=== PATIENT | female | born 1965 | race Caucasian/White ===

== ENCOUNTER 2016-11-10 11:22 | Emergency (ER) | payer OTHER ==
[2016-11-10] MEDS ORDERED: ASPIRIN TABLET 325 MG TAB ONE (11:46)
[2016-11-10] MEDS ORDERED: NITROGLYCERIN 0.4 MG 25 EA TAB SL ONE (11:46)
[2016-11-10 11:52] VITALS: TEMP 98.4; O2SAT 99
[2016-11-10] MEDS ORDERED: NITROGLYCERIN/D5W IV 250 ML IVS SCH (12:00)
[2016-11-10] MEDS ORDERED: CLOPIDOGREL 75 MG TAB PO ONE (12:03)
[2016-11-10] MEDS ORDERED: HEPARIN SODIUM (PORCINE) 5,000 U/ML VIAL IV ONE (12:04)
[2016-11-10] MEDS ORDERED: ASPIRIN (ENTERIC COATED) 325 MG TAB PO ONE (12:05)
[2016-11-10] MEDS ORDERED: TENECTEPLASE 50 MG VIAL IV ONE (12:10)
--- NOTE | 2016-11-10 12:12 | RAD ---
EXAM DESCRIPTION: Chest,1 View CLINICAL HISTORY: 51 yearsFemale, near syncope, abn ekg COMPARISON: None. IMPRESSION: Heart size and pulmonary vascularity are within normal limits. There is no airspace consolidation, pleural effusion, or pneumothorax. No acute osseous abnormality. Electronically signed by: Junior Otto MD 11/10/2016 12:11 PM [facility] [employer]
[2016-11-10] MEDS ORDERED: HEPARIN PREMIX 500 ML IV SCH (12:15)
--- NOTE | 2016-11-10 12:20 | ED.PDOC ---
History of Present Illness - General Chief Complaint: General Stated Complaint: POSS FLU Time Seen by Provider: 11/10/16 11:41 Source: patient Exam Limitations: no limitations - History of Present Illness Initial Comments: pt presents due to n/v starting at 5 am. she has developed back pain in the upper mid back and pain sevee to the left arm rated 8/10. mild shortness of breath . had significant diaphoresis. no syncope. no previous symptoms. is a diabetic and smokes and has a positive family history. pain has progressed since early this am. Timing/Duration: 4-6 hours Severity: severe Improving Factors: nothing Worsening Factors: nothing Associated Symptoms: chest pain - mild, diaphoresis, malaise, shortness of breath Allergies/Adverse Reactions: Allergies NO KNOWN ALLERGY Allergy (Verified 11/10/16 11:35) Review of Systems - Review of Systems Constitutional: States: malaise EENTM: States: no symptoms reported Respiratory: States: see HPI Cardiology: States: chest pain Gastrointestinal/Abdominal: States: nausea, vomiting Genitourinary: States: no symptoms reported Musculoskeletal: States: see HPI, back pain Skin: States: no symptoms reported Neurological: States: no symptoms reported Endocrine: States: no symptoms reported All other Systems: No Change from Baseline Past Medical History (General) - Patient Medical History Hx Congestive Heart Failure: No Hx Hypertension: Yes Hx Diabetes: Yes Surgical History: appendectomy, tonsillectomy - Vaccination History Hx Tetanus, Diphtheria Vaccination: Yes Hx Influenza Vaccination: Yes Hx Pneumococcal Vaccination: Yes - Social History Hx Tobacco Use: Yes Hx Alcohol Use: Yes Hx Substance Use: No - Female History Patient is a Female of Child Bearing Age (10 -59 yrs old): No Family Medical History - Family History Mother Living Status: Still Living Physical Exam - Physical Exam General Appearance: Alert, Anxious, Obvious distress Eye Exam: bilateral normal Ears, Nose, Throat: normal ENT inspection, normal pharynx Neck: non-tender, full range of motion, supple, normal inspection Respiratory: chest non-tender, lungs clear, normal breath sounds, no respiratory distress, no accessory muscle use Cardiovascular/Chest: normal peripheral pulses, regular rate, rhythm, no edema Peripheral Pulses: radial,right: 2+, radial,left: 2+, dorsalis pedis,right: 2+, dorsalis pedis,left: 2+ Gastrointestinal/Abdominal: non tender, soft Rectal Exam: deferred Back Exam: normal inspection, no CVA tenderness, no vertebral tenderness Extremity: normal range of motion, non-tender, normal inspection, no pedal edema , normal capillary refill Neurologic: no motor/sensory deficits, alert, oriented x 3 Skin Exam: diaphoresis, pallor Comments: Vital Signs - 24 hr 11/10/16 11:38 Temperature 98.4 F Pulse Rate [ 64 MONITOR] Respiratory 20 Rate Blood Pressure 127/78 [Right Arm] O2 Sat by Pulse 99 Oximetry Progress - Progress Progress: 11/10/16 12:22 pt presenting with likely posterior mi. dr kothari contacted and ekg's reviewed and agrees with diagnosis based on ekgs. initiated lytic protocol. tnkase started. iv heparin bolus given. 300 plavix given. aspirin given. low dose iv nitro used to prevent hypotension. transfering to [facility] for higher level of care. vitals technically normal at this time. 50mcg fentanyl given. critical care time on not other christopher billable procedures: 45 minutes 11/10/16 12:27 - Results/Orders Results/Orders: chest xray within normal limitis. ekg shows nsr with a rbbb, st depression in v1 and v2. st mild elevation in inferior leads. posterior ekg shows st elevation in v3-v5. 11/10/16 11:42 Telemetry .CONTINUOUS Oxygen Delivery Assessment: QSHIFT HCG,SERUM Stat 11/10/16 11:43 UA [URINALYSIS] Stat 11/10/16 11:45 EKG STAT 11/10/16 12:00 B-TYPE NATRIURETIC PEPTIDE/BNP Stat CARDIAC ENZYME GROUP Stat COMPLETE METABOLIC PROFILE Stat Nitroglycerin/D5w IV 250 ml IVS PRN 11/10/16 12:15 Heparin Premix [Heparin/D5w 25,000U/500ML] 500 ml IV PRN 11/11/16 09:00 Oxygen Daily Laboratory Results - last 24 hr 11/10/16 12:00 WBC 12.1 H RBC 4.52 Hgb 13.5 Hct 40.9 MCV 90.4 MCH 29.9 MCHC 33.1 RDW 13.8 Plt Count 243 MPV 7.5 Absolute Neuts (auto) 10.30 H Absolute Lymphs (auto) 1.40 Absolute Monos (auto) 0.40 Absolute Eos (auto) 0.00 Absolute Basos (auto) 0.10 Neutrophils % 84.9 H Lymphocytes % 11.4 L Monocytes % 3.2 Eosinophils % 0.0 L Basophils % 0.5 PT 10.4 INR 0.920 PTT (SP) 30.8 D-Dimer, Quantitative < 230 Sodium 135 Potassium 4.0 Chloride 104 Carbon Dioxide 23 Anion Gap 12.0 BUN 15 Creatinine 0.57 L BUN/Creatinine Ratio 26.3 H Random Glucose 149 H Serum Osmolality 273.7 L Calcium 9.5 Total Bilirubin 0.6 AST 37 ALT 23 Alkaline Phosphatase 90 Creatine Kinase 528 H* Troponin I 1.11 H* B-Natriuretic Peptide 34.6 Serum Total Protein 7.4 Albumin 4.3 Globulin 3.1 Albumin/Globulin Ratio 1.4 - EKG/XRAY/CT CT Ordered: No Departure - Departure Clinical Impression: STEMI (ST elevation myocardial infarction) Qualifiers: Involved coronary artery: unspecified coronary artery Qualifier Code: (I21.3) ST elevation (STEMI) myocardial infarction of unspecified site Disposition: Transfer to Hospital Transfer to Outside Facility - Transfer Information Accepting Provider:: dr kothari Accepting Facility: [facility] Reason for Transfer: required specialist not available
[2016-11-10] MEDS ORDERED: fentaNYL CITRATE INJ 50 MCG/ML AMP ONE (12:26)
[2016-11-10] MEDS ORDERED: fentaNYL CITRATE INJ 50 MCG/ML AMP IV ONE (12:27)
[2016-11-10] MEDS ORDERED: ASPIRIN TABLET 325 MG TAB PO ONE (12:59)
[2016-11-10 14:13] VITALS: BP 135/85
--- NOTE | 2016-11-15 00:37 | RAD ---
EXAM DESCRIPTION: Chest,1 View CLINICAL HISTORY: 51 yearsFemale, near syncope, abn ekg COMPARISON: None. IMPRESSION: Heart size and pulmonary vascularity are within normal limits. There is no airspace consolidation, pleural effusion, or pneumothorax. No acute osseous abnormality. Electronically signed by: Junior Otto MD 11/10/2016 12:11 PM NEW GRAD RN
== END 2016-11-10 12:50 | disposition short-term general hospital (02) ==
LOC: ER 11:22
DX: I21.3 ST elevation (STEMI) myocardial infarction of unspecified site (principal); I10 Essential (primary) hypertension; Z87.891 Personal history of nicotine dependence
CPT/HCPCS: 36415; 71010; 80053; 82550; 82553; 83880; 84484; 84703; 85025; 85379; 85610; 85730; 93005; J1644; J3010; J3101

== ENCOUNTER 2017-03-03 19:09 | Emergency (ER) | payer OTHER ==
[2017-03-03] MEDS ORDERED: NITROGLYCERIN 0.4 MG 25 EA TAB SL ONE ×2 (19:26→19:31)
[2017-03-03] MEDS ORDERED: ASPIRIN (CHEWABLE) 81 MG TAB ONE (19:26)
[2017-03-03] MEDS ORDERED: ASPIRIN TABLET 325 MG TAB PO ONE (19:31)
[2017-03-03] MEDS ORDERED: SODIUM CHLORIDE 0.9% (FLUSH) 10 ML SYG IV PRN (19:31)
--- NOTE | 2017-03-03 19:47 | RAD ---
EXAM DESCRIPTION: Chest,1 View CLINICAL HISTORY: 51 years Female reports chest pain and had a previous IA in [place]. COMPARISON: November 10, 2016. FINDINGS: The cardiomediastinal silhouette appears unremarkable. No consolidating infiltrates or pleural effusions. No pneumothorax. IMPRESSION: No acute abnormality is identified. Electronically signed by: Joi Espana 03/03/2017 7:46 PM CDT
[2017-03-03] MEDS ORDERED: LACTATED RINGERS 1,000 ML IVS ONE (19:55)
--- NOTE | 2017-03-03 19:56 | ED.PDOC ---
History of Present Illness - General Chief Complaint: Chest Pain/MS Stated Complaint: chest pressure and back pain Time Seen by Provider: 03/03/17 19:53 Source: patient, RN notes reviewed, Vital Signs reviewed Exam Limitations: no limitations - History of Present Illness Initial Comments: Orly Silva 51 y/o female with history of mi 5 mos ago had cardiac stent placement stated that she had stabbing chest pain on her back radiating to left side of chest which persisted on her arrival to er.No nausea/vomiting no diaphoresis,no dizziness Timing/Duration: 1-3 hours Severity: moderate Location: back Prior Chest Pain/Cardiac Workup: cardiac cath, heart attack Improving Factors: nothing Worsening Factors: nothing Nitro Today/Relief: 0.4 mg x 2, provided by ED Aspirin Treatment Today: 325 mg x 1, provided by ED Associated Symptoms: chest pain Allergies/Adverse Reactions: Allergies NO KNOWN ALLERGY Allergy (Verified 03/03/17 19:41) Home Medications: Ambulatory Orders Nitroglycerin 0.4 mg SL Q5MIN PRN #1 sub 03/03/17 Review of Systems - Review of Systems Constitutional: States: no symptoms reported EENTM: States: no symptoms reported Respiratory: States: no symptoms reported Cardiology: States: see HPI Gastrointestinal/Abdominal: States: no symptoms reported Genitourinary: States: no symptoms reported Musculoskeletal: States: no symptoms reported Skin: States: no symptoms reported Neurological: States: no symptoms reported Endocrine: States: no symptoms reported Hematologic/Lymphatic: States: no symptoms reported Past Medical History (General) - Patient Medical History Hx Asthma: Yes Hx Cardiac Disorders: Yes - [place] in Oct, stent x1 Hx Congestive Heart Failure: No Hx Hypertension: Yes Hx Diabetes: Yes Surgical History: appendectomy, tonsillectomy, other - hysterectomy - Vaccination History Hx Tetanus, Diphtheria Vaccination: No Hx Influenza Vaccination: No Hx Pneumococcal Vaccination: No - Social History Hx Tobacco Use: Yes Hx Alcohol Use: No Hx Substance Use: No - Activities of Daily Living Patient Lives Alone: No - family Grooming Ability: Independent Eating (Feeding) Ability: Independent Toileting Ability: Independent - Female History Patient is a Female of Child Bearing Age (10 -59 yrs old): No Family Medical History - Family History Mother Family History: No Known Living Status: Still Living Physical Exam - Physical Exam General Appearance: Alert, No apparent distress Eyes, Ears, Nose, Throat Exam: PERRL/EOMI, TMs normal Neck: non-tender, full range of motion, supple Respiratory: chest non-tender, lungs clear, normal breath sounds Cardiovascular/Chest: normal peripheral pulses, regular rate, rhythm, no gallop , no murmur Peripheral Pulses: radial,right: 2+, radial,left: 2+ Gastrointestinal/Abdominal: normal bowel sounds, non tender, soft, no organomegaly Extremity: normal inspection, no calf tenderness Neurologic: alert, normal mood/affect, oriented x 3 Skin Exam: normal color, warm/dry Lymphatic: no adenopathy Progress - Progress Progress: 03/03/17 19:56 Vital Signs - 8 hr 03/03/17 19:15 Temperature 97.8 F Pulse Rate 66 Pulse Rate [ 66 left] Respiratory 18 Rate Blood Pressure 125/70 [left] O2 Sat by Pulse 95 Oximetry 03/03/17 22:15 Chest pain free discuss hospital observation but declined to come back if there is recurrence of symptoms. Has good family support stated nurse is an RN living nearby.Discuss normal ekg and troponin but need to have serial testing really wants to stay home. 03/03/17 22:18 - Results/Orders Results/Orders: Laboratory Tests 03/03/17 03/03/17 03/03/17 19:15 19:15 19:15 WBC 12.5 H RBC 4.25 Hgb 13.2 Hct 38.6 MCV 90.8 MCH 31.0 MCHC 34.1 RDW 14.0 Plt Count 269 MPV 7.4 Absolute Neuts (auto) 5.80 Absolute Lymphs (auto) 5.20 H Absolute Monos (auto) 1.00 H Absolute Eos (auto) 0.30 Absolute Basos (auto) 0.10 Neutrophils % 46.5 Lymphocytes % 42.1 Monocytes % 7.7 Eosinophils % 2.5 Basophils % 1.2 PT 10.0 INR 0.880 PTT (SP) 30.9 D-Dimer, Quantitative < 200 Sodium 141 Potassium 3.8 Chloride 108 Carbon Dioxide 23 Anion Gap 13.8 BUN 32 H Creatinine 1.40 H BUN/Creatinine Ratio 22.9 H Random Glucose 110 H Serum Osmolality 288.8 Calcium 9.4 Magnesium 2.1 Total Bilirubin 0.4 Direct Bilirubin < 0.1 Indirect Bilirubin 0.3 AST 25 ALT 23 Alkaline Phosphatase 76 Creatine Kinase 529 H* CK-MB (CK-2) 14.0 H* CK-MB (CK-2) % 2.65 Troponin I < 0.02 B-Natriuretic Peptide 27.8 Serum Total Protein 7.2 Albumin 4.3 TSH Urine Color Urine Appearance Urine pH Ur Specific [place] Urine Protein Urine Glucose (UA) Urine Ketones Urine Blood Urine Nitrite Urine Bilirubin Urine Urobilinogen Ur Leukocyte Esterase Urine RBC Urine WBC Ur Epithelial Cells Urine Bacteria Urine Opiates Screen Urine Barbiturates Ur Phencyclidine Scrn U Amphetamin/Meth Scrn U Benzodiazepines Scrn U Cocaine Metab Screen U Cannabinoids Screen 03/03/17 03/03/17 03/03/17 19:55 20:48 21:25 WBC RBC Hgb Hct MCV MCH MCHC RDW Plt Count MPV Absolute Neuts (auto) Absolute Lymphs (auto) Absolute Monos (auto) Absolute Eos (auto) Absolute Basos (auto) Neutrophils % Lymphocytes % Monocytes % Eosinophils % Basophils % PT INR PTT (SP) D-Dimer, Quantitative Sodium Potassium Chloride Carbon Dioxide Anion Gap BUN Creatinine BUN/Creatinine Ratio Random Glucose Serum Osmolality Calcium Magnesium Total Bilirubin Direct Bilirubin Indirect Bilirubin AST ALT Alkaline Phosphatase Creatine Kinase 463 H* CK-MB (CK-2) 13.0 H* CK-MB (CK-2) % 2.81 Troponin I < 0.02 B-Natriuretic Peptide Serum Total Protein Albumin TSH 1.98 Urine Color Urine Appearance Urine pH Ur Specific [place] Urine Protein Urine Glucose (UA) Urine Ketones Urine Blood Urine Nitrite Urine Bilirubin Urine Urobilinogen Ur Leukocyte Esterase Urine RBC Urine WBC Ur Epithelial Cells Urine Bacteria Urine Opiates Screen Negative Urine Barbiturates Negative Ur Phencyclidine Scrn Negative U Amphetamin/Meth Scrn Negative U Benzodiazepines Scrn Negative U Cocaine Metab Screen Negative U Cannabinoids Screen Negative 03/03/17 21:27 WBC RBC Hgb Hct MCV MCH MCHC RDW Plt Count MPV Absolute Neuts (auto) Absolute Lymphs (auto) Absolute Monos (auto) Absolute Eos (auto) Absolute Basos (auto) Neutrophils % Lymphocytes % Monocytes % Eosinophils % Basophils % PT INR PTT (SP) D-Dimer, Quantitative Sodium Potassium Chloride Carbon Dioxide Anion Gap BUN Creatinine BUN/Creatinine Ratio Random Glucose Serum Osmolality Calcium Magnesium Total Bilirubin Direct Bilirubin Indirect Bilirubin AST ALT Alkaline Phosphatase Creatine Kinase CK-MB (CK-2) CK-MB (CK-2) % Troponin I B-Natriuretic Peptide Serum Total Protein Albumin TSH Urine Color Yellow Urine Appearance Clear Urine pH 5.5 Ur Specific [place] 1.020 Urine Protein Negative Urine Glucose (UA) Negative Urine Ketones Negative Urine Blood Moderate H Urine Nitrite Negative Urine Bilirubin Negative Urine Urobilinogen 0.2 Ur Leukocyte Esterase Negative Urine RBC 3-5 H Urine WBC 0-1 Ur Epithelial Cells 1-3 Urine Bacteria Rare Urine Opiates Screen Urine Barbiturates Ur Phencyclidine Scrn U Amphetamin/Meth Scrn U Benzodiazepines Scrn U Cocaine Metab Screen U Cannabinoids Screen - EKG/XRAY/CT EKG: Sinus, no ST T wave changes Comments: heart rate -66 XRAY: chest - no acute abnormality/radiologist - Additional EKG/XRAY/Consults EKG #2: Sinus, no ST T wave changes Comments: Heart rate-55 Departure - Departure Clinical Impression: Chest pain Qualifiers: Chest pain type: unspecified Qualified Code(s): R07.9 - Chest pain, unspecified Time of Disposition: 22:20 Disposition: Discharge to Home or Self Care Condition: Good Departure Forms: ED Discharge - Pt. Copy, Patient Portal Self Enrollment Prescriptions: Nitroglycerin 0.4 mg SL Q5MIN PRN #1 sub PRN Reason: Chest Pain Home Medications: Ambulatory Orders Nitroglycerin 0.4 mg SL Q5MIN PRN #1 sub 03/03/17 Additional Instructions: RETURN TO EMERGENCY ROOM NEEDED;CONTINUE WITH ALL HOME MEDICATIONS;Follow up with machinery mover and primary md call for appointment
[2017-03-03 22:51] VITALS: BP 106/59; TEMP 96.6; O2SAT 96
== END 2017-03-03 22:45 | disposition home or self-care (01) ==
LOC: ER 19:09
DX: R07.9 Chest pain, unspecified (principal); I25.2 Old myocardial infarction; I10 Essential (primary) hypertension; E11.9 Type 2 diabetes mellitus without complications; Z98.61 Coronary angioplasty status
CPT/HCPCS: 36415; 71010; 80048; 80076; 80307; 81001; 82550; 82553; 83880; 84443; 84484; 85025; 85379; 85610; 85730; J7120

== ENCOUNTER 2018-08-21 18:39 | Emergency (ER) | payer OTHER ==
--- NOTE | 2018-08-21 18:55 | ED.PDOC ---
History of Present Illness - General Chief Complaint: General Stated Complaint: right flank pain/rib pain Time Seen by Provider: 08/21/18 18:43 Source: patient Exam Limitations: no limitations - History of Present Illness Initial Comments: Patient presents with right flank pain for 3 hours. Sudden onset, sharp in nature, constant, associated with N/V since the onset. No exacerbating nor alleviating factors. Denies previous episodes. Took a hydrocodone about 3 hours ago. Had an AMI 10/2015 and has stents. She takes ASA 81 mg qd but no other anticoagulants. She was sent her from the urgent care out of concern for cardiac issues. No other complaints. Timing/Duration: other - 3 hours Severity: moderate Improving Factors: nothing Worsening Factors: nothing Associated Symptoms: nausea/vomiting Allergies/Adverse Reactions: Allergies NO KNOWN ALLERGY Allergy (Verified 08/21/18 18:55) Home Medications: Ambulatory Orders Nitroglycerin 0.4 mg SL Q5MIN PRN #1 sub 03/03/17 Review of Systems - Review of Systems Constitutional: States: no symptoms reported EENTM: States: no symptoms reported Respiratory: States: no symptoms reported Cardiology: States: no symptoms reported Gastrointestinal/Abdominal: States: see HPI Genitourinary: States: see HPI Musculoskeletal: States: no symptoms reported Skin: States: no symptoms reported Neurological: States: no symptoms reported Endocrine: States: no symptoms reported Hematologic/Lymphatic: States: no symptoms reported Past Medical History (General) - Patient Medical History Hx Asthma: Yes Hx Cardiac Disorders: Yes - [place] in Oct, stent x1 Hx Congestive Heart Failure: No Hx Hypertension: Yes Hx Diabetes: Yes - Vaccination History Hx Tetanus, Diphtheria Vaccination: No Hx Influenza Vaccination: No Hx Pneumococcal Vaccination: No - Social History Hx Tobacco Use: Yes Hx Alcohol Use: No Hx Substance Use: No Family Medical History - Family History Mother Family History: No Known Living Status: Still Living Physical Exam - Physical Exam General Appearance: Obvious distress Eye Exam: bilateral normal Ears, Nose, Throat: normal ENT inspection Neck: non-tender, full range of motion, supple Respiratory: lungs clear, normal breath sounds Cardiovascular/Chest: normal peripheral pulses, no edema, bradycardia Gastrointestinal/Abdominal: normal bowel sounds, non tender, soft Back Exam: normal inspection, no CVA tenderness Extremity: normal range of motion, non-tender, normal inspection Neurologic: gravity prospecting observer helper II-XII nml as tested, no motor/sensory deficits, alert, normal mood/affect, oriented x 3 Skin Exam: normal color Lymphatic: no adenopathy Progress - Progress Progress: 08/21/18 21:35 CXR negative. Laboratory Tests 08/21/18 08/21/18 08/21/18 19:00 19:00 19:00 WBC 17.2 H RBC 3.93 L Hgb 12.3 Hct 36.7 MCV 93.4 MCH 31.2 H MCHC 33.4 RDW 13.7 Plt Count 258 MPV 7.2 L Absolute Neuts (auto) 12.80 H Absolute Lymphs (auto) 2.80 Absolute Monos (auto) 0.90 H Absolute Eos (auto) 0.40 Absolute Basos (auto) 0.20 H Neutrophils % 74.7 Lymphocytes % 16.3 L Monocytes % 5.4 Eosinophils % 2.2 Basophils % 1.4 Sodium 140 Potassium 3.6 Chloride 107 Carbon Dioxide 26 Anion Gap 10.6 L BUN 12 Creatinine 0.89 BUN/Creatinine Ratio 13.5 POC Glucose Random Glucose 112 H Serum Osmolality 279.9 Calcium 9.4 Total Bilirubin 0.2 AST 25 ALT 18 Alkaline Phosphatase 88 Creatine Kinase CK-MB (CK-2) CK-MB (CK-2) % Troponin I Serum Total Protein 7.5 Albumin 4.1 Globulin 3.4 Albumin/Globulin Ratio 1.2 Lipase 21 L Urine Color Urine Appearance Urine pH Ur Specific [place] Urine Protein Urine Glucose (UA) Urine Ketones Urine Blood Urine Nitrite Urine Bilirubin Urine Urobilinogen Ur Leukocyte Esterase Urine RBC Urine WBC Ur Epithelial Cells Urine Bacteria 08/21/18 08/21/18 08/21/18 19:00 19:00 20:00 WBC RBC Hgb Hct MCV MCH MCHC RDW Plt Count MPV Absolute Neuts (auto) Absolute Lymphs (auto) Absolute Monos (auto) Absolute Eos (auto) Absolute Basos (auto) Neutrophils % Lymphocytes % Monocytes % Eosinophils % Basophils % Sodium Potassium Chloride Carbon Dioxide Anion Gap BUN Creatinine BUN/Creatinine Ratio POC Glucose 120 H Random Glucose Serum Osmolality Calcium Total Bilirubin AST ALT Alkaline Phosphatase Creatine Kinase 366 H* CK-MB (CK-2) 8.1 H* CK-MB (CK-2) % 2.21 Troponin I < 0.02 Serum Total Protein Albumin Globulin Albumin/Globulin Ratio Lipase Urine Color Yellow Urine Appearance Clear Urine pH 5.5 Ur Specific [place] >= 1.030 Urine Protein Negative Urine Glucose (UA) Negative Urine Ketones Negative Urine Blood Large H Urine Nitrite Negative Urine Bilirubin Negative Urine Urobilinogen 0.2 Ur Leukocyte Esterase Negative Urine RBC 5-10 H Urine WBC 3-5 H Ur Epithelial Cells 5-10 Urine Bacteria 1+ CT ab/pelvis showed no ureteral stones. WBC was 17 but this could be due to the pain. The patient was afebrile and she reported that she easily runs fevers when she is sick. Morphine 4 mg IV and Zofran 4 mg IV alleviated her N/V and most of the side pain. She also shared that when her friend massaged the focus of the pain, that if felt better. She has narcotics and muscle relaxants at home already. Will send with Zofran. Care instructions given. E.R. warnings given. Questions were elicited and answered. The patient voiced understanding and agreement with the plan. Departure - Departure Clinical Impression: Side pain Disposition: Discharge to Home or Self Care Condition: Good Departure Forms: ED Discharge - Pt. Copy, Patient Portal Self Enrollment Diet: diabetic diet Activity: increase activity as tolerated Home Medications: Ambulatory Orders Nitroglycerin 0.4 mg SL Q5MIN PRN #1 sub 03/03/17 Additional Instructions: Return to the E.R. if nausea and vomiting persists for more than two days. Return to the E.R. for a temperature above 100.4. See your regular doctor this week to follow up on the rib pain.
[2018-08-21] MEDS: MORPHINE SULFATE INJ 10 MG/ML VIAL IV ONE (19:03)
--- NOTE | 2018-08-21 19:49 | RAD ---
EXAM DESCRIPTION: AP view of the chest CLINICAL HISTORY:52 years Female, right rib pain Comparison: None FINDINGS: No focal lung consolidation. No pleural effusion. No pneumothorax. Cardiac and mediastinal silhouette is unremarkable. No acute osseous abnormality. Soft tissues are unremarkable. IMPRESSION: No acute findings. No focal lung consolidation. Electronically signed by: Mat Huffman DO 08/21/2018 7:48 PM [employer]ABLE SYSTEMS INSTALLER
[2018-08-21] MEDS: ONDANSETRON INJ 4 MG/2 ML VIAL IV ONE (20:40)
--- NOTE | 2018-08-21 20:46 | RAD ---
EXAM DESCRIPTION: XR RIBS 2 VIEWS UNILATERAL CLINICAL HISTORY: Right rib pain COMPARISON: Chest radiograph dated August 21, 2018 and March 03, 2017 FINDINGS: Right rib series was acquired. No acute displaced fracture or aggressive bone lesion is demonstrated of the right ribs. Cardiac silhouette and pulmonary vascularity are within normal limits. Included lung velasquez show no consolidative infiltrates. Posterior fusion constructs of the lower lumbar spine are seen bilaterally. Likely a belly button ring projecting over the mid abdomen. Included abdomen shows no acute abnormalities. IMPRESSION: 1. No acute displaced fracture or aggressive bony lesion of the right ribs. 2. Other findings as above. Electronically signed by: William Romero MD 08/21/2018 8:45 PM [facility]
--- NOTE | 2018-08-21 21:27 | CT ---
PROCEDURE: Abdoment/Pelvis w/o Contrast HISTORY: possible stone on right Indication: Same as above Comparison: Same as above Technique: CT of the abdomen and pelvis was done without intravenous contrast. Images were obtained from the lung base to the level of the pubic symphysis in axial plane, followed by orthogonal sagittal and coronal reconstruction. Oral contrast was not given for the study. This exam was performed according to our departmental dose-optimization program, which includes automated exposure control, adjustment of the mA and/or KV according to the patient's size and/or use of iterative reconstruction technique. FINDINGS: Images through the lung bases do not show any focal infiltrates or pleural effusions. The liver, gallbladder, pancreas, spleen and the bilateral adrenal glands appear unremarkable, given the limitation of lack of intravenous contrast. The bilateral kidneys do not show any evidence of hydronephrosis or nephrolithiasis. The bilateral ureters and the bilateral periureteral soft tissues and fat planes are unremarkable. The urinary bladder is unremarkable, without any evidence of wall thickening, calculi or filling defects. The small bowel appears unremarkable, without any evidence of small bowel obstruction or bowel wall thickening. There is no CT evidence of pericecal inflammatory change or ileocecal mesenteric adenitis. The ileocecal junction appears unremarkable. There is prior appendectomy There is no CT evidence of acute colonic diverticulitis or colitis or large bowel obstruction. There is no pathological lymphadenopathy in the retroperitoneum or in the pelvic region. There is no evidence of free fluid or free air in the abdomen or the pelvic region. There is no clinically significant abdominal aortic aneurysm. There is no clinically significant inguinal or ventral hernia. The visualized lumbar spine shows prior surgery at L4/L5 level. The paravertebral soft tissues are unremarkable. The remainder of the pelvic structures are unremarkable. IMPRESSION: There are no acute findings in the abdomen or the pelvis. There is no CT evidence of urinary tract calculi or urinary tract obstruction Electronically signed by: Peter Anthony MD 08/21/2018 9:25 PM DANCE HISTORIAN Workstation: [id number] Reviewed
[2018-08-21 21:32] VITALS: O2SAT 100
[2018-08-21] MEDS: ONDANSETRON ODT (ER DISP) 8 MG TAB PO ONE (21:50)
[2018-08-21 21:56] VITALS: BP 113/68; TEMP 98.2
== END 2018-08-21 21:56 | disposition home or self-care (01) ==
LOC: ER 18:39
DX: R10.9 Unspecified abdominal pain (principal); R11.2 Nausea with vomiting, unspecified; J45.909 Unspecified asthma, uncomplicated; I25.2 Old myocardial infarction; I10 Essential (primary) hypertension; E11.9 Type 2 diabetes mellitus without complications; Z95.5 Presence of coronary angioplasty implant and graft; Z87.891 Personal history of nicotine dependence

== ENCOUNTER 2018-10-17 10:50 | Emergency (ER) | payer OTHER ==
[2018-10-17] MEDS ORDERED: MORPHINE SULFATE INJ 10 MG/ML VIAL IV ONE (11:39)
[2018-10-17] MEDS ORDERED: LACTATED RINGERS 1,000 ML IVS ONE (11:39)
[2018-10-17] MEDS ORDERED: PROCHLORPERAZINE INJ 10 MG/2 ML VIAL IV ONE (11:39)
--- NOTE | 2018-10-17 11:41 | ED.PDOC ---
History of Present Illness - General Chief Complaint: GI Problem Stated Complaint: N/V/D, muscle spasms to leg Time Seen by Provider: 10/17/18 11:33 Source: patient Exam Limitations: no limitations - History of Present Illness Initial Comments: Orly Silva 53 y/o female stated that she had on and off N/V/D the last 3 days not any better.Her grand child ill with same symptoms.No recent antibiotic use. Timing/Duration: other - 3 days Severity: moderate Improving Factors: nothing Worsening Factors: eating Associated Symptoms: nausea/vomiting Allergies/Adverse Reactions: Allergies NO KNOWN ALLERGY Allergy (Verified 10/17/18 11:16) Home Medications: Ambulatory Orders Nitroglycerin 0.4 mg SL Q5MIN PRN #1 sub 03/03/17 Promethazine Tab [Phenergan Tablet] 25 mg PO .Q4H PRN #20 tab 10/17/18 Review of Systems - Review of Systems Constitutional: States: no symptoms reported EENTM: States: no symptoms reported Respiratory: States: no symptoms reported Cardiology: States: no symptoms reported Gastrointestinal/Abdominal: States: see HPI, diarrhea, vomiting Genitourinary: States: no symptoms reported Musculoskeletal: States: no symptoms reported All other Systems: Reviewed and Negative, No Change from Baseline Past Medical History (General) - Patient Medical History Hx Stroke: No Hx Asthma: Yes Hx Cardiac Disorders: Yes - MD, cardiac stent Hx Congestive Heart Failure: No Hx Hypertension: Yes Hx Diabetes: Yes Surgical History: appendectomy, tonsillectomy, other - hysterectomy,cardiac stent - Vaccination History Hx Tetanus, Diphtheria Vaccination: No Hx Influenza Vaccination: Yes - 2017 Hx Pneumococcal Vaccination: Yes - Social History Hx Tobacco Use: Yes Hx Alcohol Use: No Hx Substance Use: No Family Medical History - Family History Mother Family History: No Known Living Status: Still Living Physical Exam - Physical Exam General Appearance: Alert, Comfortable, No apparent distress Eye Exam: bilateral normal Ears, Nose, Throat: hearing grossly normal, normal ENT inspection, normal pharynx Neck: supple, normal inspection Respiratory: lungs clear, normal breath sounds, no respiratory distress Cardiovascular/Chest: normal peripheral pulses, regular rate, rhythm, no murmur Peripheral Pulses: radial,right: 2+, radial,left: 2+ Gastrointestinal/Abdominal: non tender, soft, no organomegaly Back Exam: no CVA tenderness, no vertebral tenderness Extremity: no pedal edema, no calf tenderness Neurologic: alert, oriented x 3 Skin Exam: normal color, warm/dry Lymphatic: no adenopathy Progress - Progress Progress: 10/17/18 11:45 Vital Signs - 8 hr 10/17/18 11:09 Temperature 98.2 F Pulse Rate [ 73 Left Radial] Respiratory 14 Rate Blood Pressure 105/65 [Left Arm] O2 Sat by Pulse 94 L Oximetry - Results/Orders Results/Orders: 10/17/18 13:09 Sodium Chloride 0.9% 500Ml [NS 500ml] 500 ml IVS ONCE Laboratory Results - last 24 hr 10/17/18 10/17/18 11:46 11:53 WBC 6.6 RBC 4.40 Hgb 13.9 Hct 41.9 MCV 95.1 MCH 31.5 H MCHC 33.2 RDW 13.8 Plt Count 232 MPV 7.5 Absolute Neuts (auto) 4.90 Absolute Lymphs (auto) 1.00 Absolute Monos (auto) 0.60 Absolute Eos (auto) 0.00 Absolute Basos (auto) 0.00 Neutrophils % 74.1 Lymphocytes % 15.1 L Monocytes % 9.7 H Eosinophils % 0.7 L Basophils % 0.4 PT 9.9 INR 0.99 PTT (SP) 25.0 Sodium 136 Potassium 3.6 Chloride 104 Carbon Dioxide 23 Anion Gap 12.6 BUN 15 Creatinine 0.78 BUN/Creatinine Ratio 19.2 Random Glucose 111 H Serum Osmolality 273.5 L Calcium 9.0 Magnesium 2.0 Total Bilirubin 0.3 Direct Bilirubin < 0.1 Indirect Bilirubin 0.2 AST 32 ALT 25 Alkaline Phosphatase 74 Creatine Kinase 256 H* CK-MB (CK-2) 5.9 H* CK-MB (CK-2) % 2.30 Troponin I < 0.02 Serum Total Protein 7.8 Albumin 4.0 Lipase 26 Urine Color Yellow Urine Appearance Clear Urine pH 5.5 Ur Specific Bevier >= 1.030 Urine Protein 30 Urine Glucose (UA) Negative Urine Ketones Negative Urine Blood Large H Urine Nitrite Negative Urine Bilirubin Small H Urine Urobilinogen 0.2 Ur Leukocyte Esterase Negative Urine RBC 30-40 H Urine WBC 0 Ur Epithelial Cells 0-1 Urine Bacteria 0 Discuss test result with patient and ask if she had been evaluated for blood in urine mentioned that she had Urological evaluation and closely followed up by Urologist.Also stated mom also has blood in her urine cause unknown and had urological evaluation also. Departure - Departure Clinical Impression: Gastroenteritis Hematuria Qualifiers: Hematuria type: unspecified type Qualified Code(s): R31.9 - Hematuria, unspecified Time of Disposition: 13:31 Disposition: Discharge to Home or Self Care Condition: Fair Departure Forms: ED Discharge - Pt. Copy, Patient Portal Self Enrollment Instructions: Viral Gastroenteritis, Viral Gastroenteritis, Adult (DC), [place] Diet Prescriptions: Promethazine Tab [Phenergan Tablet] 25 mg PO .Q4H PRN #20 tab PRN Reason: Nausea Home Medications: Ambulatory Orders Nitroglycerin 0.4 mg SL Q5MIN PRN #1 sub 03/03/17 Promethazine Tab [Phenergan Tablet] 25 mg PO .Q4H PRN #20 tab 10/17/18 Additional Instructions: Return to emergency room as needed;continue with all home medications
[2018-10-17] MEDS ORDERED: SODIUM CHLORIDE 0.9% 500ML 500 ML IVS ONE (13:09)
[2018-10-17 14:01] VITALS: BP 102/64; TEMP 99.6; O2SAT 99
== END 2018-10-17 14:01 | disposition home or self-care (01) ==
LOC: ER 10:50
DX: K52.9 Noninfective gastroenteritis and colitis, unspecified (principal); R31.9 Hematuria, unspecified; J45.909 Unspecified asthma, uncomplicated; I25.2 Old myocardial infarction; I10 Essential (primary) hypertension; E11.9 Type 2 diabetes mellitus without complications; Z95.5 Presence of coronary angioplasty implant and graft; Z87.891 Personal history of nicotine dependence
CPT/HCPCS: 80048; 80076; 81001; 82550; 82553; 83690; 84484; 85025; 85610; 85730; J0780; J2270; J7040; J7120

== ENCOUNTER → 2019-02-23 | Outpatient (CLI) | payer OTHER ==
--- NOTE | 2019-02-26 11:40 | MRI ---
EXAM DESCRIPTION: Lumbar Spine w/o Contrast : Magnetic Resonance Imaging. CLINICAL HISTORY: Spinal stenosis COMPARISON: Lumbar spine radiographs January 2010, prior to fusion surgery. TECHNIQUE: Multiplanar, multiple standard sequences, non contrast MRI, lumbar spine. FINDINGS: L5-S1: The entire disc space can be identified on axial T2 series 501, image 3. Disc is desiccated with minimal disc space loss. Tiny posterior bulging. Bilateral pedicle shortening with minimal flavum ligament hypertrophy and hypertrophic facet arthrosis. AP canal diameter 7 mm. Fusion screw in the left L5 pedicle and bulging disc resulting in left foraminal stenosis and compromise of the left L5 nerve. Similar findings contralateral right foramen and right L5 nerve. Fusion construct with bilateral pedicle screws and unilateral connecting rods at L4-L5. Interbody fusion device with no material bulging posteriorly into the canal. Questionable subsidence into the inferior L4 endplate. Posterior decompression has been performed. Partial fusion of the facet joints. Moderate left foraminal narrowing. Right foraminal stenosis. Possible compromise exiting right L4 nerve. No soft tissue mass or fluid collection around the hardware or in the canal. Normal marrow signal around the hardware. L3-L4: Disc desiccation with anterior posterior broad-based bulging. Bilateral hypertrophic facet arthrosis and thickened ligaments with AP canal diameter 7 mm. Moderate bilateral foraminal narrowing. L2-L3: Normal signal in the disc and disc space preserved. Minimal thickening of the posterior ligaments. Canal and bilateral foramina are patent. L1-L2: Normal signal in the disc and disc space preserved. Posterior elements unremarkable. Canal and foramina are patent. Conus terminates at L1. Normal signal. T12-L1: Minimal desiccation of the disc with disc space preserved. Tiny posterior bulge not encroaching on the cord or conus. Canal and foramina are patent. Normal signal in the included cord. Minimal L2-L4 dextroscoliosis Paravertebral soft tissues are unremarkable. Normal marrow signal in the remaining vertebral bodies and the posterior elements. Vertebral bodies are not compressed at any level. IMPRESSION: 1. Posterior fusion construct L4-L5 with interbody fusion device and bilateral connecting rods with pedicle screws at both levels. Possible fusion device subsidence into the inferior L4 endplate. Correlate with lumbar spine radiographs. No other complications are seen with the hardware. Right foraminal stenosis and possible compromise of the exiting right L4 nerve. 2. Bilateral pedicle shortening and flavum ligament hypertrophy at L5-S1 with mild to moderate canal stenosis. Left foraminal stenosis with possible compromise left L5 nerve. 3. Bulging L3-4 disc, hypertrophy of the posterior elements with resulting mild to moderate canal stenosis Electronically signed by: Darius Roberto MD 02/26/2019 11:38 AM CDT
== END ==
LOC: MRI 14:00
PROVIDERS: ATTEND Anesthesiology Pain Medicine
DX: M48.062 Spinal stenosis, lumbar region with neurogenic claudication (principal); M51.86 Other intervertebral disc disorders, lumbar region; M48.07 Spinal stenosis, lumbosacral region; M96.1 Postlaminectomy syndrome, not elsewhere classified; Z98.1 Arthrodesis status

== ENCOUNTER → 2019-04-04 | Outpatient (CLI) | payer OTHER ==
--- NOTE | 2019-04-05 08:09 | RAD ---
EXAM DESCRIPTION: Lumbar Spine 5 Views: CR/DR/XR CLINICAL HISTORY: 53 years Female RADICULOPATHY LUMBAR REGION COMPARISON: 2 view lumbar spine series 01/26/2010, prior to fusion construct. MRI cervical spine on the same visit. TECHNIQUE: 4 views. AP Lateral Lateral flexion-extension. Limited by patient large body habitus. FINDINGS: Lumbar type vertebra: 5. Transitional vertebrae: None. Disc spaces: Posterior bilateral fusion construct L4-L5 with interbody fusion device. Customary position of hardware, near-anatomic alignment. Other disc spaces are maintained.. Compression deformities: None. Bone Density: Minimally decreased. Alignment: Hardware stable in position with flexion and lumbar lordosis is maintained. Hardware stable in extension, with limited extension above the hardware. Facet joints: No significant arthrosis above the fusion level. Abdomen: Multiple small air-fluid levels in the colon. Possibly in the distal small bowel. Bilateral pelvic suture material. IMPRESSION: 1. Bilateral posterior L4-L5 fusion construct. Customary position and near-anatomic alignment. No bony or hardware complications. Alignment maintained with flexion and extension. Study limited by patient large body habitus. 2. Constipation. Electronically signed by: Darius Roberto MD 04/05/2019 8:06 AM CDT
--- NOTE | 2019-04-05 08:22 | MRI ---
EXAM DESCRIPTION: Cervical Spine: MRI. CLINICAL HISTORY: 53 years Female M54.12 COMPARISON: None. TECHNIQUE: Multiplanar, high-field MRI, multiple sequences, non-contrast Cervical spine. FINDINGS: C3-C4: Disc desiccation. Right uncinate spur and right intraforaminal disc protrusion with neural foraminal stenosis and compromise of the right C4 nerve root. Canal and left neuroforamen are patent. Facets are negative. C4-C5: Disc desiccation with anterior and posterior bulging. Posterior midline bulge almost abutting the cord. Bilateral uncinate spurs with mild right neural foraminal narrowing moderate left neural foraminal narrowing. Facet joints are unremarkable. C5-C6: Disc desiccation and diffuse disc bulging abutting the cord. Disc space loss. Bilateral uncinate spurs. Bilateral neural foraminal stenosis and borderline mild central canal stenosis. Facets are negative. C6-C7: Disc desiccation and minimal disc space loss. Anterior disc bulge. Right neuroforamen is patent. Large left uncinate spur and disc osteophyte complex encroaching on the left neural foramen which is severely stenotic with compromise of the left C7 nerve. Left paracentral mild canal stenosis. Circumscribed hyperintense T1 and T2 signal in the T1 vertebral body consistent with a hemangioma. Normal signal in the remaining discs with no bulging. Disc spaces preserved. Canal and neural foramina are patent. Facet joints are negative. Spinal alignment kyphotic from C2 to C6. No cord compression or cord edema. Atlantoaxial joint minimal arthrosis.. Base of the cerebellar tonsils is at the level of the foramen magnum. Paravertebral soft tissues unremarkable. Vertebral bodies are not compressed at any level. Otherwise normal marrow signal in the remaining vertebral bodies and the posterior elements. IMPRESSION: 1. Prominent right uncinate spur at C3-4 with right posterior lateral disc protrusion spur complex with right neural foraminal stenosis and compromise of the right C4 nerve. 2. Bilateral large uncinate spurs at C5-C6 with posterior disc osteophyte bulge in the midline resulting in bilateral neural foraminal stenosis and bilateral C6 nerve root compromise. Borderline mild central canal stenosis. 3. Large left uncinate spur at C6-C7 with left posterior lateral disc spur complex protrusion, advanced left neural foraminal stenosis and left C7 nerve compromise. Left paracentral mild canal stenosis. Electronically signed by: Darius Roberto MD 04/05/2019 8:20 AM CDT
== END ==
LOC: MRI 10:53
PROVIDERS: ATTEND Neurological Surgery
DX: M54.16 Radiculopathy, lumbar region (principal); M50.11 Cervical disc disorder with radiculopathy, high cervical region; M50.123 Cervical disc disorder at C6-C7 level with radiculopathy; M48.02 Spinal stenosis, cervical region; M25.78 Osteophyte, vertebrae; K59.00 Constipation, unspecified; Z98.1 Arthrodesis status

== ENCOUNTER → 2019-07-10 | Outpatient (CLI) | payer OTHER ==
--- NOTE | 2019-07-11 08:45 | RAD ---
EXAM DESCRIPTION: Cervical Spine, 2-3 Views CLINICAL HISTORY: 53 years Female, CERVICAL RADICULOPATHY COMPARISON: MRI cervical spine 04/04/2019 TECHNIQUE: 2 views of the cervical spine. IMPRESSION: ACDF at C5-C6 and C6-C7 without hardware complication. Interbody spacers in place anteriorly within the disc space with minimal subsidence of the posterior aspect of the interbody implant at C5-C6 into the inferior C5 endplate. No acute displaced fracture. No acute compression deformity. Straightening of the cervical spine. Maintained AP alignment without listhesis. Moderate uncovertebral spurring at C3-C4 C4-C5. Nonsurgical disc spaces maintained in height. No prevertebral soft tissue thickening. Visualized lungs unremarkable. Electronically signed by: Reinier Lomas MD 07/11/2019 8:43 AM CDT
== END ==
LOC: RAD 13:12
PROVIDERS: ATTEND Neurological Surgery
DX: M54.12 Radiculopathy, cervical region (principal); M25.78 Osteophyte, vertebrae; Z98.1 Arthrodesis status

== ENCOUNTER → 2019-10-30 | Outpatient (CLI) | payer OTHER ==
--- NOTE | 2019-10-31 09:00 | RAD ---
EXAM DESCRIPTION: Lumbar Spine,Flex/Ext CLINICAL HISTORY: SPONDYLOSIS LUMBAR REGION COMPARISON: April 04, 2019 TECHNIQUE: Lateral flexion and extension views lumbar spine FINDINGS: Flexion and extension view shows satisfactory alignment of the spine with pedicle screw fixation bilaterally at the L4 and L5 levels with intervertebral disc device in place at the L4-5 level. No significant movement between flexion and extension at the level of surgery and alignment with the sacrum. Slight flexion and extension of the upper lumbar and lower thoracic spine above the level of fixation is noted. No malalignment is seen. IMPRESSION: Prior surgery and surgical fixation with pedicle screws and intervertebral disc device at the L4 and L5 levels with essentially stable alignment between flexion and extension with no significant movement in this location. Mild flexion and extension of the upper lumbar and lower thoracic spine with flexion and extension views above the level of surgery. Electronically signed by: Jayson Hatfield MD 10/31/2019 8:58 AM [facility]
== END ==
LOC: LAB.O 11:09
PROVIDERS: ATTEND Surgery
DX: M43.16 Spondylolisthesis, lumbar region (principal); F17.208 Nicotine dependence, unspecified, with other nicotine-induced disorders; Z98.890 Other specified postprocedural states

== ENCOUNTER → 2020-03-11 | Outpatient (CLI) | payer OTHER ==
--- NOTE | 2020-03-12 11:50 | RAD ---
EXAM DESCRIPTION: Lumbar Spine 3 Views CLINICAL HISTORY: 54 years Female, LUMBAR RADICULOPATHY COMPARISON: 10/30/2019. FINDINGS: Stable hardware traversing L4, L5 vertebral bodies. Interval placement of anterior fixation hardware traversing L5 and S1 vertebral bodies. The vertebral body heights are well-maintained with no acute compression deformity. Mild multilevel degenerative disc disease and facet arthropathy is noted. No evidence of spondylolysis or spondylolisthesis. The visualized prevertebral and paravertebral soft tissues appear grossly unremarkable. IMPRESSION: Stable hardware traversing L4, L5 vertebral bodies. Interval placement of anterior fixation hardware traversing L5 and S1 vertebral bodies. Electronically signed by: Lore Dickerson MD 03/12/2020 11:48 AM CDT
== END ==
LOC: RAD 10:11
PROVIDERS: ATTEND Neurological Surgery
DX: M54.16 Radiculopathy, lumbar region (principal); Z98.890 Other specified postprocedural states

== ENCOUNTER → 2020-03-26 | Outpatient (CLI) | payer OTHER ==
--- NOTE | 2020-03-26 11:57 | RAD ---
EXAM DESCRIPTION: Lumbar Spine 3 Views CLINICAL HISTORY: 54 years Female, RADICULOPATHY LUMBAR REGION COMPARISON: 03/11/2020. FINDINGS: Spinal fixation hardware is noted traversing L4-S1 vertebral bodies. The vertebral body heights are well-maintained with no acute compression deformity. The intervertebral disc spaces are well preserved. No evidence of spondylolysis or spondylolisthesis. The visualized prevertebral and paravertebral soft tissues appear grossly unremarkable. IMPRESSION: Stable hardware traversing the lower lumbar spine. Electronically signed by: Lore Dickerson MD 03/26/2020 11:56 AM CDT
== END ==
LOC: RAD 09:59
PROVIDERS: ATTEND Neurological Surgery
DX: M54.16 Radiculopathy, lumbar region (principal); Z98.890 Other specified postprocedural states

== ENCOUNTER → 2020-06-18 | Outpatient (CLI) | payer OTHER ==
--- NOTE | 2020-06-19 08:17 | RAD ---
EXAM DESCRIPTION: Lumbar Spine 3 Views CLINICAL HISTORY: 54 years Female, LUMBAR RADICULOPATHY COMPARISON: March 26, 2020 FINDINGS: Two views of the lumbar spine show postoperative changes in L4-5 and L5-S1 without apparent hardware other surgical complication, unchanged from the prior exam. No vertebral body fracture or subluxation. The disc spaces are well-maintained and the nonsurgical levels. The sacrum and sacroiliac joints are unremarkable. Additional postoperative changes elsewhere in the pelvis. IMPRESSION: Uncomplicated postoperative changes at L4-5 and L5-S1, otherwise unremarkable exam. Electronically signed by: Wilfredo Rai MD 06/19/2020 8:16 AM CDT
== END ==
LOC: RAD 12:15
PROVIDERS: ATTEND Neurological Surgery
DX: M54.16 Radiculopathy, lumbar region (principal); Z98.890 Other specified postprocedural states

== ENCOUNTER → 2020-07-14 | Outpatient (CLI) | payer OTHER ==
--- NOTE | 2020-07-15 09:49 | MRI ---
EXAM DESCRIPTION: Cervical Spine: MRI. CLINICAL HISTORY: 54 years Female CERVICAL DISC DISORDER COMPARISON: Cervical spine MRI without contrast prior to fusion surgery in March 2019. TECHNIQUE: Multiplanar, high-field MRI, multiple sequences, non-contrast Cervical spine. FINDINGS: ACDF C5-C7 has been performed since the prior study. Images are slightly degraded by artifact from fusion hardware. Interbody fusion device at C5-C6. Bilateral neural foraminal stenosis and mild to moderate canal narrowing. Bilateral facets are unremarkable. Interbody fusion device C6-C7: Left uncinate spur and left neural foraminal stenosis. Right neuroforamen is patent. Minimal arthrosis bilateral facet joints. Canal is patent. C4-C5: Desiccated disc and anterior disc space narrowing and endplate ridging. Posterior disc bulge touching the cord; along with posterior thickened ligaments resulting in mild central canal stenosis. Bilateral uncinate spurs and mild bilateral facet arthrosis with bilateral neural foraminal stenosis. C3-C4: Disc desiccation with disc space preserved. Bilateral uncinate spurs larger on the right with bilateral neural foraminal stenosis more on the right. Mild hypertrophic facet arthrosis bilaterally. C7-T1 minimal disc desiccation minimal bilateral neural foraminal narrowing. Posterior thickened ligaments. Mild canal narrowing but no stenosis. Circumscribed hyperintense T1 and T2 hemangioma C7 vertebral body stable. Normal signal in the C2-C3 and T1-T2 disc with no bulging. Disc spaces preserved. Canal and neural foramina are patent. Facet joints negative. Spinal alignment showing mild kyphosis C3-C5. No cord compression or cord edema. Atlantoaxial joint mild arthrosis and hypertrophy.. Base of the cerebellar tonsils is above the foramen magnum. Paravertebral soft tissues unremarkable.. Vertebral bodies are not compressed at any level. Normal marrow signal in the remaining vertebral bodies and the posterior elements. IMPRESSION: 1. ACDF has been performed at C5-C7 since the prior study. Interbody fusion devices at both levels. Bilateral neural foraminal stenosis at C5-C6 and left neural foraminal stenosis at C6-C7. Correlate for bilateral unilateral radiculopathy at C6 and C7. 2. Bilateral neural foraminal stenosis at C4-C5 is progressed since the prior study. 3. Bilateral neural foraminal stenosis at C3-C4 has progressed since the prior study. 4. Please refer to FINDINGS for discussion the results at other disc space levels. Electronically signed by: Darius Roberto MD 07/15/2020 9:47 AM CDT
--- NOTE | 2020-07-15 10:18 | MRI ---
EXAM DESCRIPTION: Lumbar Spine w/o Contrast : Magnetic Resonance Imaging. CLINICAL HISTORY: INTERVERTEBRAL DISC DISORDERS WITH RADICULOPATHY COMPARISON: LUMBAR TECHNIQUE: Multiplanar, multiple standard sequences, non contrast MRI, lumbar spine. FINDINGS: L5-S1: The disc space is well visualized on axial T2 series 501, image 3. Interbody fusion device stable. Anterior disc space retainer with fixation screws at L5 and S1 has been introduced since the prior study. No complications. Posterior granulation tissue in the disc space. Hypertrophic bone in the posterior canal. AP canal diameter 7 mm. Moderate to severe narrowing of the left foramen and stenosis of the right foramen. Stable since the prior study. L4-L5: Interbody fusion device, with midline alignment. Posterior transpedicular screws and unilateral connecting rods again noted with no complications. Prior posterior decompression. Partial fusion of facet joints. Moderate left neural foraminal narrowing. Right foraminal stenosis. Stable since the prior study. L3-L4: Disc desiccation anterior and posterior bulging. Disc space maintained. Hypertrophic changes in the posterior flavum ligaments and facet joints (canal elements). Mild central canal stenosis. Borderline left foraminal stenosis and moderate to severe right foraminal narrowing. This has progressed since the prior study. L2-L3: Disc normal signal with disc space preserved. Minimal hypertrophy of the Canal elements. Mild canal narrowing. Mild bilateral foraminal narrowing. Stable. L1-L2: Normal signal in the disc with disc space preserved. Minimal bulge into the left foramen. Thickening of the flavum ligaments. Mild canal narrowing. T12-L1: Normal signal in the disc with disc space preserved. No disc bulging. Canal elements unremarkable. Foramina and canal are patent. Conus terminates at this level. Minimal upper lumbar dextroscoliosis. Paravertebral soft tissues lateral cortical cyst right kidney.. Distal cord normal signal and caliber. Otherwise normal marrow signal in the remaining vertebral bodies and the posterior elements. Vertebral bodies are not compressed at any level. IMPRESSION: 1. Anterior retainer with fixation screws at L5 and S1 has been introduced since the prior study. Central canal stenosis and stenosis of the right foramen are stable since the prior study. 2. Right foraminal stenosis at L4-L5 no interval change. Stable position of posterior L4-L5 transpedicular screws and unilateral connecting rods with no complications. 3. Mild central canal stenosis at L3-L4 is stable. Borderline left foraminal stenosis has progressed since the prior study. 4. Please refer to FINDINGS for discussion of results at other disc space levels. Electronically signed by: Darius Roberto MD 07/15/2020 10:16 AM CDT
== END ==
LOC: MRI 08:00
PROVIDERS: ATTEND Psychiatry & Neurology Neurology
DX: M50.11 Cervical disc disorder with radiculopathy, high cervical region (principal); M51.16 Intervertebral disc disorders with radiculopathy, lumbar region; M51.17 Intervertebral disc disorders with radiculopathy, lumbosacral region; M48.02 Spinal stenosis, cervical region; M48.061 Spinal stenosis, lumbar region without neurogenic claudication; Z98.890 Other specified postprocedural states; Z98.1 Arthrodesis status

== ENCOUNTER → 2020-09-01 | Outpatient (CLI) | payer OTHER ==
--- NOTE | 2020-09-03 18:35 | MAM ---
EXAM DESCRIPTION: 3D Screening BILATERAL : Digital Mammography. CLINICAL HISTORY: 54 years Female ANNUAL SCREENING . No complaints. History of " fibrocystic breast disease." No family history breast cancer. Menarche age 18. Childbirth age 22. Hysterectomy age 27. No HRT. Bilateral breast reduction.. Lifetime risk of developing breast cancer (Tyrer-Cuzick model)(%): 7.1. COMPARISON: Previous studies at outside imaging facility not available for comparison at this time. TECHNIQUE: Bilateral CC and MLO projection full-field images, digital tomosynthesis mammographic technique Bilateral digital 2-D full-field MLO images. CAD available for 2-D images. FINDINGS: The breast parenchymal density pattern is: Scattered areas of fibroglandular density. Circumscribed mass density with benign type calcifications in the posterior left breast consistent with degenerating fibroadenoma, or residual implant material. Minimal architectural distortion bilaterally. Peripherally located, faintly visible circumscribed nodular densities are most likely skin moles, or Oil Cysts. Oil cysts are commonly seen post trauma or post implant removal. Asymmetric tissue in the anterior third of the upper outer quadrant of the left breast No skin thickening or nipple retraction No focal, stellate mass or density, focal asymmetry , and no suspicious microcalcifications bilaterally. IMPRESSION: Benign exam. BIRAD CATEGORY: 2 BENIGN FINDINGS. RECOMMENDATIONS: FOLLOW UP: Routine digital bilateral mammographic screening, one year interval from August 2020. Written communication explaining the IMPRESSION and follow-up, will be mailed to the patient and referring health care provider. According to the [employer], yearly mammograms are recommended starting at age 40 and continuing as long as a woman is in good health. Any breast change noted on a breast self-exam should be reported promptly to the patient's healthcare provider. Breast MRI is recommended for women with an approximately 20-25% or greater lifetime risk of breast cancer, including women with a strong family history of breast or ovarian cancer and women who have been treated for Hodgkin's disease. A negative mammographic report should not delay tissue diagnosis in patients with significant clinical history or physical findings. Extremely dense breast tissue limits the sensitivity of digital mammography. Electronically signed by: Darius Roberto MD 09/03/2020 6:33 PM [employer]
== END ==
LOC: MAMMO 08:55
PROVIDERS: ATTEND Family Medicine
DX: Z12.31 Encounter for screening mammogram for malignant neoplasm of breast (principal)